=== PATIENT | female | born 1960 | race Caucasian/White ===

== ENCOUNTER → 2017-05-07 10:25 | Outpatient (POV) | payer MEDICARE, OTHER, SELFPAY | PROVIDERS: Family Provider Emergency Medicine; PCP Emergency Medicine; Visit Provider Nurse Practitioner Acute Care | DX: Z00.00 Encounter for general adult medical examination without abnormal findings (principal) ==

== ENCOUNTER → 2017-07-16 12:20 | Outpatient (CLI) | payer MEDICARE, OTHER, SELFPAY ==
[2017-07-16 13:09] VITALS: BMI 54.1
[2017-07-16 13:14] LABS: Basophils # 0.1 K/mm3 (0-0.2); Basophils % 0.3 % (0.1-2.0); Eosinophils # 0.2 K/mm3 (0.0-0.4); Eosinophils % 1.5 % (0.1-12.0); Hematocrit 42.8 % (37.0-47.0); Hemoglobin 12.9 g/dL (12.2-16.2); Lymphocytes # 2.1 K/mm3 (0.7-4.5); Lymphocytes % 13.6 K/mm3 (10-50); Mean Corpuscular Hemoglobin 25.8 pg (27.0-31.2); Mean Platelet Volume 7.5 fl (7.4-10.4); Monocytes # 0.7 K/mm3 (0.1-1.0); Monocytes % 4.6 % (1.7-9.3); Neutrophils # 12.6 K/mm3 (1.8-7.8); Platelet Count 374 K/mm3 (142-424); Red Blood Count 4.98 M/mm3 (4.20-5.40); Red Cell Distribution Width 14.5 % (11.5-17.5); White Blood Count 15.7 K/mm3 (4.8-10.8)
[2017-07-16 13:16] LABS: MANUAL DIFFERENTIAL MANUAL DIFFERENTIAL (MANUAL DIFF)
[2017-07-16 13:24] LABS: Alanine Aminotransferase 14 U/L (12-78); Albumin Level 2.9 gm/dL (3.4-5.0); Albumin/Globulin Ratio 0.7 (1.1-1.8); Alkaline Phosphatase 134 U/L (46-116); Anion Gap 12.8 mEq/L (5-15); Aspartate Amino Transferase 10 U/L (15-37); Bilirubin,Total 0.2 mg/dL (0.2-1.0); Blood Urea Nitrogen 14 mg/dL (7-18); Calcium 8.3 mg/dL (8.5-10.1); Carbon Dioxide 26 mmol/L (21.0-32.0); Chloride 106 mmol/L (98-107); Creatinine Clearance Estimated 56 mL/min (0-300); Creatinine,Serum 0.89 mg/dL (0.55-1.02); Estimated Glomerular Filt Rate 66 ml/min (>60); GFR (African American) 80 ML/MIN (>60); Globulin 4.3 gm/dl (1.3-3.2); Glucose 193 mg/dL (74-106); Potassium 3.8 mmoL/L (3.5-5.1); Sodium 141 mmol/L (136-145); Total Protein,Serum 7.2 gm/dL (6.4-8.2)
[2017-07-16 13:47] LABS: Lymphocytes % 11 % (10-50); Monocytes % 4 % (2-9); Neutrophils % 85 % (42-76); Platelet Estimate Normal; RBC Morphology Normal; Total Cells Counted 100
== END ==
PROVIDERS: Family Provider Emergency Medicine; PCP Family Medicine; Visit Provider Internal Medicine
DX: D64.9 Anemia, unspecified (principal)
CPT/HCPCS: 80053; 85007; 85025; J1642

== ENCOUNTER 2018-05-10 16:10 | Outpatient (CLI) | payer MEDICARE, OTHER, SELFPAY | END 2018-05-10 16:26 | disposition home or self-care (01) | LOC: INF 16:12 | PROVIDERS: Visit Provider Family Medicine | DX: Z45.2 Encounter for adjustment and management of vascular access device (principal) | CPT/HCPCS: 96523; J1642 ==

== ENCOUNTER 2018-07-05 11:35 | Outpatient (CLI) | payer MEDICARE, OTHER, SELFPAY | END 2018-07-05 12:10 | disposition home or self-care (01) | LOC: INF 11:51 | PROVIDERS: Visit Provider Family Medicine | DX: Z45.2 Encounter for adjustment and management of vascular access device (principal) | CPT/HCPCS: 96523; J1642 ==

== ENCOUNTER 2018-07-19 13:28 | Outpatient (CLI) | payer MEDICARE, OTHER, SELFPAY ==
[2018-07-19 13:37] VITALS: BMI 55.0
[2018-07-19 14:04] LABS: Basophils % 0.4 % (0.1-2.0); Eosinophils # 0.2 K/mm3 (0.0-0.4); Hemoglobin 11.4 g/dL (12.2-16.2)
[2018-07-19 14:13] LABS: Alanine Aminotransferase 17 U/L (12-78); Albumin Level 2.9 gm/dL (3.4-5.0); Albumin/Globulin Ratio 0.7 (1.1-1.8); Alkaline Phosphatase 98 U/L (46-116); Anion Gap 13.8 mEq/L (5-15); Aspartate Amino Transferase 12 U/L (15-37); Bilirubin,Total 0.3 mg/dL (0.2-1.0); Blood Urea Nitrogen 13 mg/dL (7-18); Calcium 8.8 mg/dL (8.5-10.1); Carbon Dioxide 24 mmol/L (21.0-32.0); Chloride 108 mmol/L (98-107); Creatinine Clearance Estimated 52 mL/min (50-200); Estimated Glomerular Filt Rate 65 ml/min (>60); GFR (African American) 78 ML/MIN (>60); Globulin 4.3 gm/dl (1.3-3.2); Glucose 124 mg/dL (74-106); Potassium 3.8 mmoL/L (3.5-5.1); Sodium 142 mmol/L (136-145); Total Protein,Serum 7.2 gm/dL (6.4-8.2)
[2018-07-19 14:55] LABS: Ferritin 19 ng/mL (8-388)
[2018-07-19 15:00] LABS: Hematocrit 36.6 % (37.0-47.0); Lymphocytes # 2.3 K/mm3 (0.7-4.5); Lymphocytes % 22.4 % (10-50); Mean Corpuscular HGB Conc 31.1 g/dL (31.8-35.4); Mean Corpuscular Hemoglobin 26.7 pg (27.0-31.2); Mean Corpuscular Volume 85.8 fl (81-99); Mean Platelet Volume 7.5 fl (7.4-10.4); Monocytes # 0.5 K/mm3 (0.1-1.0); Monocytes % 4.9 % (1.7-9.3); Neutrophils # 7.1 K/mm3 (1.8-7.8); Neutrophils % 70.4 % (37.0-80.0); Platelet Count 334 K/mm3 (142-424); Red Blood Count 4.26 M/mm3 (4.20-5.40); Red Cell Distribution Width 15.7 % (11.5-17.5); White Blood Count 10.1 K/mm3 (4.8-10.8)
[2018-07-20 08:26] LABS: Iron 33 ug/dL (27-159); UIBC 276 ug/dL (131-425)
[2018-07-20 18:08] LABS: Iron Saturation 11 % (15-55)
== END 2018-07-19 14:05 | disposition home or self-care (01) ==
LOC: INF 13:30
PROVIDERS: PCP Family Medicine; Visit Provider Internal Medicine Medical Oncology
DX: D50.0 Iron deficiency anemia secondary to blood loss (chronic) (principal)
CPT/HCPCS: 80053; 82728; 83540; 83550; 85025; J1642

== ENCOUNTER 2018-09-13 10:00 | Outpatient (CLI) | payer MEDICARE, OTHER, SELFPAY ==
[2018-09-13 11:00] VITALS: BP 115/59; PULSE 88; RESP 18; TEMP 36.6; O2SAT 97
[2018-09-13 11:30] VITALS: BP 119/74; PULSE 82; RESP 18; TEMP 36.6; O2SAT 98
[2018-09-13 12:10] VITALS: BP 122/69; PULSE 78; RESP 18; TEMP 36.7; O2SAT 97
== END 2018-09-13 12:15 | disposition home or self-care (01) ==
LOC: INF 10:17
PROVIDERS: Visit Provider Internal Medicine Medical Oncology
DX: D50.9 Iron deficiency anemia, unspecified (principal)
CPT/HCPCS: 96365; J1642

== ENCOUNTER 2018-09-20 09:38 | Outpatient (CLI) | payer MEDICARE, OTHER, SELFPAY ==
[2018-09-20 10:20] VITALS: BP 118/66; PULSE 89; RESP 18; O2SAT 97
[2018-09-20 10:50] VITALS: BP 124/68; PULSE 83; RESP 18
--- NOTE | 2018-09-20 16:01 | PC.NURSE ---
[id number]-PREMEDICATED WITH ZOFRAN 8MG PO AT THIS TIME.
== END 2018-09-20 11:05 | disposition home or self-care (01) ==
LOC: INF 09:38
PROVIDERS: Visit Provider Internal Medicine Medical Oncology
DX: D50.9 Iron deficiency anemia, unspecified (principal); T45.4X5A Adverse effect of iron and its compounds, initial encounter
CPT/HCPCS: 96365; J1439; J1642

== ENCOUNTER 2018-10-18 09:53 | Outpatient (CLI) | payer MEDICARE, OTHER, SELFPAY ==
[2018-10-18 09:55] VITALS: BMI 52.7
[2018-10-18 10:10] VITALS: BP 129/74; PULSE 88; RESP 18; TEMP 36.4; O2SAT 97
[2018-10-18 10:42] LABS: Anion Gap 10.4 mEq/L (5-15); Blood Urea Nitrogen 16 mg/dL (7-18); Calcium 8.4 mg/dL (8.5-10.1); Carbon Dioxide 26 mmol/L (21.0-32.0); Chloride 105 mmol/L (98-107); Creatinine Clearance Estimated 56 mL/min (50-200); Creatinine,Serum 0.88 mg/dL (0.55-1.02); Estimated Glomerular Filt Rate 66 ml/min (>60); GFR (African American) 80 ML/MIN (>60); Glucose 124 mg/dL (74-106); Potassium 3.4 mmoL/L (3.5-5.1); Sodium 138 mmol/L (136-145)
[2018-10-18 11:00] LABS: Cholesterol 151 mg/dL (140-200); HDL Cholesterol 50 mg/dL (29-89); LDL Cholesterol 81 mg/dL (0-130); Triglycerides 99 mg/dL (30-200); VLDL Cholesterol 20 mg/dL (0-40)
[2018-10-18 11:16] LABS: Hemoglobin A1C 5.4 % (0.0-7.0)
[2018-10-20 22:51] LABS: Microalbumin, Urine 7.5 ug/mL (Not Estab.)
== END 2018-10-18 10:30 | disposition home or self-care (01) ==
LOC: INF 10:01
PROVIDERS: Visit Provider Family Medicine
DX: E11.9 Type 2 diabetes mellitus without complications (principal); Z79.84 Long term (current) use of oral hypoglycemic drugs
CPT/HCPCS: 80048; 80061; 82043; 83036; J1642

== ENCOUNTER 2018-11-15 08:10 | Outpatient (CLI) | payer MEDICARE, OTHER, SELFPAY | END 2018-11-15 08:30 | disposition home or self-care (01) | LOC: INF 08:10 | PROVIDERS: Visit Provider Family Medicine | DX: Z45.2 Encounter for adjustment and management of vascular access device (principal) | CPT/HCPCS: 96523; J1642 ==

== ENCOUNTER 2018-12-13 08:22 | Outpatient (CLI) | payer MEDICARE, OTHER, SELFPAY ==
[2018-12-13 08:35] VITALS: BP 112/68; PULSE 68; RESP 20; TEMP 36.9; O2SAT 95
== END 2018-12-13 09:10 | disposition home or self-care (01) ==
LOC: INF 08:22
PROVIDERS: Visit Provider Family Medicine
DX: Z45.2 Encounter for adjustment and management of vascular access device (principal)
CPT/HCPCS: 96372; 96523; J1642

== ENCOUNTER → 2018-12-24 09:44 | Outpatient (POV) | payer MEDICARE, OTHER, SELFPAY | PROVIDERS: Visit Provider Internal Medicine | DX: Z00.00 Encounter for general adult medical examination without abnormal findings (principal) ==

== ENCOUNTER 2019-01-17 08:32 | Outpatient (CLI) | payer MEDICARE, OTHER, SELFPAY | END 2019-01-17 09:54 | disposition home or self-care (01) | LOC: INF 08:33 | PROVIDERS: Visit Provider Family Medicine | DX: Z45.2 Encounter for adjustment and management of vascular access device (principal) | CPT/HCPCS: 96374; 96523; J1642 ==

== ENCOUNTER 2019-03-17 08:00 | Outpatient (RCR) | payer MEDICARE, OTHER, SELFPAY | END 2019-03-17 15:00 | disposition home or self-care (01) | LOC: OT 08:00 | PROVIDERS: Visit Provider Nurse Practitioner Family | DX: M25.531 Pain in right wrist (principal) | CPT/HCPCS: 97014; 97110; 97164; 97165; G0283 ==

== ENCOUNTER 2020-07-14 14:59 | Outpatient (CLI) | payer MEDICARE, OTHER, SELFPAY | END 2020-07-14 15:55 | disposition home or self-care (01) | LOC: INF 14:59 | PROVIDERS: Visit Provider Family Medicine | DX: Z45.2 Encounter for adjustment and management of vascular access device (principal) | CPT/HCPCS: 96523; J1642 ==

== ENCOUNTER 2020-08-11 14:30 | Outpatient (CLI) | payer MEDICARE, OTHER, SELFPAY | END 2020-08-11 14:55 | disposition home or self-care (01) | LOC: INF 15:02 | PROVIDERS: Visit Provider Family Medicine | DX: Z45.2 Encounter for adjustment and management of vascular access device (principal) | CPT/HCPCS: 96523; J1642 ==

== ENCOUNTER 2020-09-08 14:50 | Outpatient (CLI) | payer MEDICARE, OTHER, SELFPAY | END 2020-09-08 15:35 | disposition home or self-care (01) | LOC: INF 14:59 | PROVIDERS: Visit Provider Family Medicine | DX: Z45.2 Encounter for adjustment and management of vascular access device (principal) | CPT/HCPCS: 96523; J1642 ==

== ENCOUNTER 2020-10-15 15:15 | Outpatient (CLI) | payer MEDICARE, OTHER, SELFPAY | END 2020-10-15 16:01 | disposition home or self-care (01) | LOC: INF 15:22 | PROVIDERS: Visit Provider Family Medicine | DX: Z45.2 Encounter for adjustment and management of vascular access device (principal) | CPT/HCPCS: 96523; J1642 ==

== ENCOUNTER 2020-11-17 14:35 | Outpatient (CLI) | payer MEDICARE, OTHER, SELFPAY | END 2020-11-17 15:15 | disposition home or self-care (01) | LOC: INF 14:50 | DX: Z45.2 Encounter for adjustment and management of vascular access device (principal) | CPT/HCPCS: 96523; J1642 ==